=== PATIENT | female | born 1965 | race Caucasian/White ===

== ENCOUNTER → 2019-11-08 14:02 | Outpatient (BNVA) | payer SELFPAY | PROVIDERS: Family Provider Nurse Practitioner Family; PCP Nurse Practitioner Family; Visit Provider Anesthesiology | DX: M48.02 Spinal stenosis, cervical region (principal); M48.061 Spinal stenosis, lumbar region without neurogenic claudication; M47.816 Spondylosis without myelopathy or radiculopathy, lumbar region; M51.04 Intervertebral disc disorders with myelopathy, thoracic region; M46.1 Sacroiliitis, not elsewhere classified; M79.7 Fibromyalgia; Z79.891 Long term (current) use of opiate analgesic | CPT/HCPCS: 99214 ==

== ENCOUNTER → 2020-01-13 14:23 | Outpatient (BNVA) | payer SELFPAY | PROVIDERS: Family Provider Nurse Practitioner Family; PCP Nurse Practitioner Family; Visit Provider Anesthesiology | DX: M48.02 Spinal stenosis, cervical region (principal); M51.04 Intervertebral disc disorders with myelopathy, thoracic region; M47.816 Spondylosis without myelopathy or radiculopathy, lumbar region; M48.061 Spinal stenosis, lumbar region without neurogenic claudication; M79.7 Fibromyalgia; Z79.891 Long term (current) use of opiate analgesic | CPT/HCPCS: 99214 ==

== ENCOUNTER → 2021-09-30 10:42 | Outpatient (BNVA) | payer SELFPAY | PROVIDERS: Family Provider Nurse Practitioner Family; PCP Nurse Practitioner Family; Visit Provider Nurse Practitioner Family | DX: E11.9 Type 2 diabetes mellitus without complications (principal); E55.9 Vitamin D deficiency, unspecified; E78.2 Mixed hyperlipidemia; I10 Essential (primary) hypertension; Z79.4 Long term (current) use of insulin | CPT/HCPCS: 80053; 80061; 82306; 83036; 84443; 85025 ==

== ENCOUNTER → 2021-11-19 11:12 | Outpatient (BNVA) | payer SELFPAY | PROVIDERS: Family Provider Nurse Practitioner Family; PCP Nurse Practitioner Family; Visit Provider Nurse Practitioner Family | DX: R05.9 Cough, unspecified (principal); J22 Unspecified acute lower respiratory infection; R39.9 Unspecified symptoms and signs involving the genitourinary system | CPT/HCPCS: 81003; 87086; 87400; 87635 ==

== ENCOUNTER → 2023-01-30 08:35 | Outpatient (BNVA) | payer OTHER, SELFPAY | PROVIDERS: Family Provider Nurse Practitioner Family; PCP Nurse Practitioner Family; Visit Provider Nurse Practitioner | DX: F43.12 Post-traumatic stress disorder, chronic (principal); F33.2 Major depressive disorder, recurrent severe without psychotic features; Z79.899 Other long term (current) drug therapy | CPT/HCPCS: 80061; 83036 ==

== ENCOUNTER → 2024-05-27 09:49 | Outpatient (BNVA) | payer SELFPAY | PROVIDERS: Family Provider Nurse Practitioner Family; PCP Nurse Practitioner Family; Visit Provider Nurse Practitioner Family | DX: I10 Essential (primary) hypertension (principal); E78.2 Mixed hyperlipidemia; E11.9 Type 2 diabetes mellitus without complications; Z79.4 Long term (current) use of insulin; E55.9 Vitamin D deficiency, unspecified | CPT/HCPCS: 80053; 80061; 81003; 82306; 83036; 84443; 85025 ==

== ENCOUNTER 2024-06-01 06:00 | Outpatient (CLI) | payer OTHER, SELFPAY ==
--- NOTE | 2024-06-01 12:00 | MM_ITS ---
WS: [id number] BILATERAL SCREENING DIGITAL TOMOSYNTHESIS MAMMOGRAM WITH CAD HISTORY: Z12.31 - Encounter for screening mammogram for malignant ... COMPARISON: 03/25/2018 Bilateral CC and MLO views with tomosynthesis and synthetic mammography submitted. Computer aided det ection analyzed. Breast composition: There are scattered areas of fibroglandular density. No suspicious masses, microc alcifications or architectural distortion. Benign scattered calcifications in each breast. No suspici ous asymmetry. MM/[place] [id number] IMPRESSION: BI-RADS: 2-Benign FOLLOW UP: 1 Year Follow-up
== END 2024-06-01 06:01 | disposition home or self-care (01) ==
LOC: MOBLMAM 07-06 11:32
PROVIDERS: PCP Nurse Practitioner Family; Visit Provider Nurse Practitioner Family
DX: Z12.31 Encounter for screening mammogram for malignant neoplasm of breast (principal); R92.323 Mammographic fibroglandular density, bilateral breasts; R92.1 Mammographic calcification found on diagnostic imaging of breast
CPT/HCPCS: 77063; 77067

== ENCOUNTER → 2024-11-28 16:08 | Outpatient (BNVA) | payer OTHER, SELFPAY | PROVIDERS: PCP Nurse Practitioner Family; Visit Provider Nurse Practitioner Family | DX: N39.0 Urinary tract infection, site not specified (principal); B35.1 Tinea unguium; J01.90 Acute sinusitis, unspecified; B96.89 Other specified bacterial agents as the cause of diseases classified elsewhere; J01.40 Acute pansinusitis, unspecified | CPT/HCPCS: 80053; 81000; 81003; 85025 ==

== ENCOUNTER → 2025-02-15 14:57 | Outpatient (BNVA) | payer OTHER, SELFPAY | PROVIDERS: PCP Nurse Practitioner Family; Visit Provider Nurse Practitioner Family | DX: E55.9 Vitamin D deficiency, unspecified (principal); I10 Essential (primary) hypertension; E78.2 Mixed hyperlipidemia; E11.9 Type 2 diabetes mellitus without complications; Z79.4 Long term (current) use of insulin; B35.1 Tinea unguium; Z98.890 Other specified postprocedural states; M16.0 Bilateral primary osteoarthritis of hip; M25.551 Pain in right hip; M25.552 Pain in left hip; M48.02 Spinal stenosis, cervical region; N39.0 Urinary tract infection, site not specified; R30.0 Dysuria; G89.29 Other chronic pain; M48.061 Spinal stenosis, lumbar region without neurogenic claudication; G47.30 Sleep apnea, unspecified; M51.362 Other intervertebral disc degeneration, lumbar region with discogenic back pain and lower extremity pain | CPT/HCPCS: 80053; 80061; 81000; 81003; 82306; 83036; 84443; 85025 ==

== ENCOUNTER 2025-02-16 13:47 | Outpatient (CLI) | payer OTHER, SELFPAY ==
--- NOTE | 2025-02-16 14:04 | XR_ITS ---
WS: [email or web address] Exam: XR cervical spine min 6V [id number] Date/Time of Exam: 02/16/2025 2:04 PM Reason For Exam: M48.02 - Spinal stenosis, cervical region Comparison 04/21/2018. No acute fracture. No flexion or extension instability. Mild facet DJD. Disc spaces are preserved. Normal paraspinal soft tissues. The dens is intact. The bony neural foramina appear to be patent. XR/XR cervical spine min 6V [id number] IMPRESSION: 1. Mild facet DJD otherwise unremarkable cervical spine study.
--- NOTE | 2025-02-16 14:04 | XR_ITS ---
WS: [email or web address] Exam: XR lumbar spine 6V w f/e [id number] Date/Time of Exam: 02/16/2025 2:04 PM Reason For Exam: Z98.890 - Other specified postprocedural states No fracture noted. Angular dextroscoliosis noted. Degenerative disc narrowing from L3-S1. There is spondylosis. Facet arthropathy at all levels. No significant flexion or extension instability noted. Prominent bone spur projects from the inferior posterior margin of L3 and might cause some spinal canal stenosis at this level. XR/XR lumbar spine 6V w f/e [id number] IMPRESSION: 1. Moderate degenerative changes. Angular dextroscoliosis. 2. Prominent osteophyte projects along the posterior margin of the lower endpla te of L3 and might cause some spinal canal stenosis.
--- NOTE | 2025-02-16 14:04 | XR_ITS ---
WS: [email or web address] Exam: XR hip BI m 5V wo/w pel* [id number] Date/Time of Exam: 02/16/2025 2:04 PM Reason For Exam: M16.0 - Bilateral primary osteoarthritis of hip No fracture. There is mild degenerative change of both hips the pattern is bilaterally symmetrical. Degenerative change of the bilateral acetabulum. Normal bilateral soft tissues. The pelvis is intact. XR/XR hip BI m 5V wo/w pel* [id number] IMPRESSION: 1. No fracture. 2. Mild bilateral DJD of both hips. The pattern is symmetrical from side-to-si de..
== END 2025-02-16 13:48 | disposition home or self-care (01) ==
PROVIDERS: PCP Nurse Practitioner Family; Visit Provider Nurse Practitioner Family
DX: M48.02 Spinal stenosis, cervical region (principal); Z98.890 Other specified postprocedural states; M16.0 Bilateral primary osteoarthritis of hip; M47.892 Other spondylosis, cervical region; M47.896 Other spondylosis, lumbar region; M41.86 Other forms of scoliosis, lumbar region; M25.78 Osteophyte, vertebrae; M51.369 Other intervertebral disc degeneration, lumbar region without mention of lumbar back pain or lower extremity pain; M51.379 Other intervertebral disc degeneration, lumbosacral region without mention of lumbar back pain or lower extremity pain
CPT/HCPCS: 72052; 72114; 73523

== ENCOUNTER → 2025-02-21 15:33 | Outpatient (BNVA) | payer OTHER, SELFPAY | PROVIDERS: PCP Nurse Practitioner Family; Visit Provider Nurse Practitioner Family | DX: M51.369 Other intervertebral disc degeneration, lumbar region without mention of lumbar back pain or lower extremity pain (principal); M48.061 Spinal stenosis, lumbar region without neurogenic claudication; F41.8 Other specified anxiety disorders; R06.02 Shortness of breath; E11.9 Type 2 diabetes mellitus without complications; Z79.4 Long term (current) use of insulin | CPT/HCPCS: 71046 ==

== ENCOUNTER → 2025-04-14 13:06 | Outpatient (BNVA) | payer OTHER, SELFPAY | PROVIDERS: PCP Nurse Practitioner Family; Visit Provider Emergency Medicine | DX: R30.0 Dysuria (principal) | CPT/HCPCS: 81000; 87086 ==

== ENCOUNTER → 2025-04-20 17:10 | Outpatient (BNVA) | payer OTHER, SELFPAY | PROVIDERS: PCP Nurse Practitioner Family; Visit Provider Nurse Practitioner Family | DX: N39.0 Urinary tract infection, site not specified (principal) | CPT/HCPCS: 81003 ==

== ENCOUNTER 2025-06-28 09:40 | Outpatient (CLI) | payer OTHER, SELFPAY ==
--- NOTE | 2025-06-28 09:40 | MM_ITS ---
WS: [id number] BILATERAL SCREENING DIGITAL TOMOSYNTHESIS MAMMOGRAM WITH CAD HISTORY: SCREENING COMPARISON: , 03/25/2018 Bilateral CC and MLO views with tomosynthesis and synthetic mammography submitted. Computer aided detection analyzed. Breast composition: There are scattered areas of fibroglandular density. No suspicious masses, microcalcifications or architectural distortion. Numerous benign calcifications within each breast. MM/MM scr BI tomosynthesis [id number] IMPRESSION: BI-RADS: 2 - Benign. FOLLOW UP: 1 Year Follow-up
== END 2025-06-28 09:41 | disposition home or self-care (01) ==
LOC: MOBLMAM 09:41
PROVIDERS: PCP Nurse Practitioner Family; Visit Provider Nurse Practitioner Family
DX: Z12.31 Encounter for screening mammogram for malignant neoplasm of breast (principal); R92.323 Mammographic fibroglandular density, bilateral breasts; R92.1 Mammographic calcification found on diagnostic imaging of breast
CPT/HCPCS: 77063; 77067

== ENCOUNTER → 2025-07-18 15:45 | Outpatient (BNVA) | payer OTHER, SELFPAY | PROVIDERS: PCP Nurse Practitioner Family; Visit Provider Nurse Practitioner Family | DX: N39.0 Urinary tract infection, site not specified (principal) | CPT/HCPCS: 81003 ==

== ENCOUNTER → 2025-07-25 14:34 | Outpatient (BNVA) | payer OTHER, SELFPAY | PROVIDERS: PCP Nurse Practitioner Family; Visit Provider Nurse Practitioner Family | DX: R30.9 Painful micturition, unspecified (principal); N39.0 Urinary tract infection, site not specified; R31.9 Hematuria, unspecified | CPT/HCPCS: 81000; 81003; 87086 ==